=== PATIENT | female | born 1965 | race Caucasian/White ===

== ENCOUNTER 2022-03-24 15:55 | Emergency (ER) | payer BC ==
[2022-03-24] MEDS ORDERED: Orphenadrine 60 MG/2 ML Inj IM ONE (15:58)
[2022-03-24] MEDS ORDERED: Ketorolac 30 MG/ML SDV IM ONE (15:58)
[2022-03-24] MEDS ORDERED: Take Home: Ketorolac 10 MG Tab, 4 Tab Pack PO ONE (17:03)
[2022-03-24] MEDS ORDERED: Take Home: Orphenadrine 100 MG Tab.ER, 4 Tab Pack PO ONE (17:05)
== END 2022-03-24 17:20 | disposition home or self-care (01) ==
LOC: CC.ED 15:55
DX: M54.31 Sciatica, right side (principal); Z88.0 Allergy status to penicillin; Z79.899 Other long term (current) drug therapy
CPT/HCPCS: 96372; 99283; A9270-GY; J1885; J2360